=== PATIENT | male | born 1980 | race Caucasian/White ===

== ENCOUNTER 2017-04-25 10:54 | Day surgery (SDC) | payer OTHER ==
[~2017-04-25 10:54] MED LIST: LACTATED RINGERS 1,000 ML IV SCH
[2017-04-25 11:12] VITALS: RESP 16; TEMP 97.4
[2017-04-25] MEDS ORDERED: LIDOCAINE 1% 20 ML VIAL (10MG/ML) FOR IV START INTRADERMA ONE (11:13)
[2017-04-25] MEDS ORDERED: LIDOCAINE 1% INJ 10MG/ML (20 ML MDV) ONE (12:25)
[2017-04-25] MEDS ORDERED: PROPOFOL 10 MG/ML 20 ML VIAL IV ONE (12:25)
[2017-04-25] MEDS ORDERED: GLYCOPYRROLATE 0.2 MG/ML 2 ML VIAL ONE (12:25)
--- NOTE | 2017-04-25 12:48 | P.PCN ---
Date of Procedure: 04/25/17 Procedure(s) Performed: Procedure: Esophagogastroduodenoscopy and biopsy. Preoperative diagnosis: Chronic reflux symptoms requiring therapy. Postoperative diagnosis: 1. Small sliding hiatal hernia with no obvious esophagitis or complicated reflux disease. 2. Mild antral gastritis. 3. Multiple biopsies obtained from the duodenum, antrum and esophagus.. Preparation and sedation: Was provided by anesthesia. Brief clinical history: The patient is a 36-year-old male with history of acid reflux requiring PPI therapy for at least the last couple years with recurrence of his symptoms off medications. This evaluation is to assess for esophagitis or complicated reflux disease and rule out other pathology. Procedure: With the patient on his left lateral decubitus position and after informed consent and adequate sedation, I passed the Olympus-GIF 160 video upper endoscope through the cricopharyngeus down the esophagus. GE junction was around 36 cm from the incisors and there was a small sliding hiatal hernia with no obvious esophagitis or complicated reflux disease. The endoscope was then passed into the stomach which was insufflated with air and inspected in detail including the retroflex view in the cardia. There was some minimal mottling and erythema in the antrum but no ulcers or erosions. Pyloric channel , duodenal bulb, post bulbar area and descending duodenum appeared within normal limits. I obtained biopsies from the duodenum, antrum and esophagus then the endoscope was withdrawn. The patient tolerated the procedure well. Plan: The patient was reassured. Will await biopsy results. He will follow up with you as planned and further plans can be made based on his course and biopsy results.
[2017-04-25 13:01] VITALS: BP 121/83; PULSE 68
== END 2017-04-25 13:35 | disposition home or self-care (01) ==
LOC: ORWHC2ENDO 10:54
DX: K21.9 Gastro-esophageal reflux disease without esophagitis (principal); K29.50 Unspecified chronic gastritis without bleeding; K44.9 Diaphragmatic hernia without obstruction or gangrene; Z79.899 Other long term (current) drug therapy
CPT/HCPCS: 43239; 88305; J2001; J2704

== ENCOUNTER 2018-04-21 01:25 | Emergency (ER) | payer OTHER ==
[2018-04-21 01:36] VITALS: TEMP 98.3
--- NOTE | 2018-04-21 02:07 | ED ---
General Adult HPI - General Chief complaint: Abdominal Pain Stated complaint: abd pain Time Seen by Provider: 04/21/18 01:38 Source: patient Mode of arrival: ambulatory Limitations: no limitations - History of Present Illness Initial comments: Dictation was produced using Stripe dictation software. please excuse any grammatical, word or spelling errors. Chief Complaint: 37-year-old male with past medical history of gastroesophageal reflux disease presents with abdominal pain. History of Present Illness: Patient states his symptoms began at 9 PM yesterday. Patient states he had some potato soup. Shortly after patient began experiencing epigastric abdominal pain. Patient states he has had symptoms like this in the past. He gets these attacks approximately once a year. Patient began experiencing nausea vomiting and diarrhea shortly after. He states his emesis was green in color. He did have some diarrhea with some some small hard stools and then. Patient denies any constitutional symptoms. The ROS documented in this emergency department record has been reviewed and confirmed by me. Those systems with pertinent positive or negative responses have been documented in the HPI. All other systems are other negative and/or noncontributory. PHYSICAL EXAM: General Impression: Alert and oriented x3, not in acute distress HEENT: Normocephalic atraumatic, extra-ocular movements intact, pupils equal and reactive to light bilaterally, mucous membranes moist. Cardiovascular: Heart regular rate and rhythm, S1&S2 audible, no murmurs, rubs or gallops Chest: Lungs clear to auscultation bilaterally, no rhonchi, no wheeze, no rales Abdomen: Nontender tympanic to percussion, diffuse abdominal tenderness worse in the epigastric region Musculoskeletal: Pulses present and equal in all extremities, no peripheral edema Motor: Power 5/5 bilaterally, no focal deficits noted Neurological: CN II-XII grossly intact, no focal motor or sensory deficits noted Skin: Intact with no visualized rashes Psych: Normal affect and mood ED course: 37-year-old male significant past medical history presents with epigastric abdominal pain. As upon arrival are within acceptable limits.Laboratory evaluation obtained. Patient has mild leukocytosis of 15.2. Metabolic panel was obtained. Metabolic panel is unremarkable. Lipase negative. KUB ordered showing nonspecific nonobstructive bowel gas pattern. Abdominal ultrasound was obtained showing no findings of acute cholecystitis. There are several small gallbladder polyps identified. Patient given Toradol. He is reevaluated found to be in stable medical condition. Patient hemodynamically stable. No episodes of nausea vomiting or diarrhea while in the emergency department. Discussed with patient his findings. Patient made aware of his gallbladder polyps. At this point there is no clinical suspicion of surgical abdomen at this time. Discussed with patient that his symptoms may reflect ulcer versus symptomatic gallbladder polyps versus bowel spasms. Patient given prescription for Zofran. He is told to continue taking his proton pump inhibitor medication. Patient given referral to gastroenterology. Patient given strict return precautions that if he should develop any worsening symptoms including fever and worsening abdominal pain to come directly to the emergency department. Patient understandable agreeable to plan. Repeat abdominal examination shows improvement of abdominal symptoms. - Related Data Home Medications Medication Instructions Recorded Confirmed Pantoprazole Sodium [Protonix] 40 mg PO DAILY 04/20/17 04/21/18 Previous Rx's Medication Instructions Recorded Dicyclomine [Bentyl] 10 mg PO QID PRN #12 capsule 04/21/18 Ondansetron Odt [Zofran Odt] 4 mg PO Q8HR PRN #12 tab 04/21/18 Allergies Allergy/AdvReac Type Severity Reaction Status Date / Time No Known Allergies Allergy Verified 04/21/18 01:35 Review of Systems ROS Statement: Those systems with pertinent positive or pertinent negative responses have been documented in the HPI. ROS Other: All systems not noted in ROS Statement are negative. Past Medical History Past Medical History: GERD/Reflux, Skin Disorder Additional Past Medical History / Comment(s): SORENESS, DULL PRESSURE IN CHEST, LIKE "HEARTBURN." ACNE. HX SHINGLES 2016. History of Any Multi-Drug Resistant Organisms: None Reported Additional Past Surgical History / Comment(s): VASECTOMY 04/15/17. MOLAR EXTRACTION. Past Anesthesia/Blood Transfusion Reactions: No Reported Reaction Past Psychological History: No Psychological Hx Reported Smoking Status: Never smoker Past Alcohol Use History: Rare Past Drug Use History: None Reported - Past Family History Mother Family Medical History: No Reported History General Exam Limitations: no limitations Course Vital Signs 04/21/18 04/21/18 01:30 02:37 Temperature 98.3 F Pulse Rate 105 H 92 Respiratory 18 16 Rate Blood Pressure 121/78 120/85 O2 Sat by Pulse 98 100 Oximetry Medical Decision Making - Lab Data Result diagrams: 04/21/18 02:34 04/21/18 02:34 Lab Results 04/21/18 04/21/18 Range/Units 02:34 02:34 WBC 15.2 H (3.8-10.6) k/uL RBC 5.27 (4.30-5.90) m/uL Hgb 16.7 (13.0-17.5) gm/dL Hct 48.4 (39.0-53.0) % MCV 91.7 (80.0-100.0) fL MCH 31.6 (25.0-35.0) pg MCHC 34.5 (31.0-37.0) g/dL RDW 12.3 (11.5-15.5) % Plt Count 206 (150-450) k/uL Neutrophils % 91 % Lymphocytes % 3 % Monocytes % 4 % Eosinophils % 1 % Basophils % 0 % Neutrophils # 13.9 H (1.3-7.7) k/uL Lymphocytes # 0.5 L (1.0-4.8) k/uL Monocytes # 0.6 (0-1.0) k/uL Eosinophils # 0.2 (0-0.7) k/uL Basophils # 0.0 (0-0.2) k/uL Sodium 142 (137-145) mmol/L Potassium 4.4 (3.5-5.1) mmol/L Chloride 104 (98-107) mmol/L Carbon Dioxide 26 (22-30) mmol/L Anion Gap 12 mmol/L BUN 27 H (9-20) mg/dL Creatinine 0.81 (0.66-1.25) mg/dL Est GFR (CKD-EPI)AfAm >90 (>60 ml/min/1.73 sqM) Est GFR (CKD-EPI)NonAf >90 (>60 ml/min/1.73 sqM) Glucose 119 H (74-99) mg/dL Calcium 9.9 (8.4-10.2) mg/dL Total Bilirubin 0.9 (0.2-1.3) mg/dL AST 36 (17-59) U/L ALT 57 (21-72) U/L Alkaline Phosphatase 96 (38-126) U/L Total Protein 8.0 (6.3-8.2) g/dL Albumin 4.8 (3.5-5.0) g/dL Lipase 147 (23-300) U/L Disposition Clinical Impression: Abdominal pain Disposition: HOME SELF-CARE Condition: Fair Instructions (If sedation given, give patient instructions): Abdominal Pain (ED) Prescriptions: Dicyclomine [Bentyl] 10 mg PO QID PRN #12 capsule PRN Reason: abdominal pain Ondansetron Odt [Zofran Odt] 4 mg PO Q8HR PRN #12 tab PRN Reason: Nausea Is patient prescribed a controlled substance at d/c from ED?: No Referrals: Henri Langley MD [Primary Care Provider] - 1-2 days Bertram Tsang MD [STAFF PHYSICIAN] - 1-2 days Time of Disposition: 04:08
[2018-04-21 02:39] VITALS: RESP 16
[2018-04-21 02:47] LABS: Basophils % (A) 0 %; Eosinophils # (A) 0.2 k/uL (0-0.7); Eosinophils % (A) 1 %; HCT 48.4 % (39.0-53.0); HGB 16.7 gm/dL (13.0-17.5); Lymphocytes # (A) 0.5 k/uL (1.0-4.8); Lymphocytes % (A) 3 %; MCH 31.6 pg (25.0-35.0); MCHC 34.5 g/dL (31.0-37.0); MCV 91.7 fL (80.0-100.0); Mean Platelet Volume 7.6; Monocytes # (A) 0.6 k/uL (0-1.0); Monocytes % (A) 4 %; Neutrophils # (A) 13.9 k/uL (1.3-7.7); Neutrophils % (A) 91 %; Platelet Count 206 k/uL (150-450); RBC 5.27 m/uL (4.30-5.90); RDW 12.3 % (11.5-15.5); WBC 15.2 k/uL (3.8-10.6)
[2018-04-21] MEDS ORDERED: KETOROLAC 30 MG/ML 1 ML VIAL IVP STA (02:51)
[2018-04-21 02:56] LABS: ALT 57 U/L (21-72); AST 36 U/L (17-59); Albumin 4.8 g/dL (3.5-5.0); Alkaline Phosphatase 96 U/L (38-126); Anion Gap 12 mmol/L; Blood Urea Nitrogen 27 mg/dL (9-20); Calcium 9.9 mg/dL (8.4-10.2); Carbon Dioxide 26 mmol/L (22-30); Chloride 104 mmol/L (98-107); Glucose 119 mg/dL (74-99); Lipase 147 U/L (23-300); Potassium 4.4 mmol/L (3.5-5.1); Sodium 142 mmol/L (137-145); Total Bilirubin 0.9 mg/dL (0.2-1.3)
--- NOTE | 2018-04-21 02:59 | XR ---
INDICATION: Abdominal pain COMPARISON: None FINDINGS: A total of 2 upright AP views of the abdomen are submitted for interpretation. The bowel gas pattern is nonspecific and nonobstructive. There is no evidence of free air. No abnormal abdominal calcifications are seen. Regional skeleton is intact. IMPRESSION: Nonspecific, nonobstructive bowel gas pattern.
--- NOTE | 2018-04-21 03:48 | US ---
INDICATION: Abdominal pain and vomiting TECHNIQUE: Real-time imaging of the abdomen is performed in transverse and longitudinal projections. COMPARISON: None FINDINGS: The liver is normal in size and echogenicity. No focal lesion is seen. The pancreas is partially obscured by bowel gas. This is portions of aorta and IVC are unremarkable. There is no ascites. The gallbladder wall thickness is borderline measuring 3 mm. Several small gallbladder polyps are identified. There is no evidence of cholelithiasis. There is no pericholecystic fluid. Sonographic Mancuso sign is negative. The common bile duct is normal in caliber. The kidneys appear normal. There is no hydronephrosis. The spleen is unremarkable. EXAM MEASUREMENTS: Liver Length: 16.9 cm Gallbladder Wall: 0.3 cm CBD: 0.4 cm Spleen: 10.3 cm Right Kidney: 9.8 x 4.5 x 3.6 x cm Left Kidney: 9.2 x 5.2 x 4.4 cm IMPRESSION: 1. Several small gallbladder polyps are identified. No sonographic evidence of cholelithiasis, acute cholecystitis, or biliary dilatation.
[2018-04-21] MEDS ORDERED: ONDANSETRON 4 MG/2 ML VIAL IVP STA (04:04)
[2018-04-21 04:19] VITALS: BP 121/83; PULSE 84
== END 2018-04-21 04:14 | disposition home or self-care (01) ==
LOC: EC 01:25
DX: R10.13 Epigastric pain (principal); R11.2 Nausea with vomiting, unspecified; R19.7 Diarrhea, unspecified; K21.9 Gastro-esophageal reflux disease without esophagitis; Z79.899 Other long term (current) drug therapy
CPT/HCPCS: 36415; 74018; 76700; 80053; 83690; 85025; 96374; 96375; 99284

== ENCOUNTER 2020-06-23 12:34 | Emergency (ER) | payer BC, OTHER ==
[2020-06-23 12:46] VITALS: BP 117/85; PULSE 97; TEMP 99
[2020-06-23] MEDS ORDERED: ACETAMINOPHEN TAB 500 MG TAB PO STA (13:03)
--- NOTE | 2020-06-23 13:06 | ED ---
General Adult HPI - General Chief complaint: Upper Respiratory Infection Stated complaint: Covid+, SOB, fever Time Seen by Provider: 06/23/20 12:48 Source: patient, RN notes reviewed Mode of arrival: ambulatory Limitations: no limitations - History of Present Illness Initial comments: Patient is a pleasant 39-year-old male presenting to the emergency Department with complaints of concerns for COVID-19 disease. Onset of symptoms was several days ago. Patient was tested +6 days ago. Patient is having significant fatigue. Patient has fevers at a controlled with Tylenol. Patient does have cough with some shortness of breath. Patient has slightly decreased appetite, loss of smell. Some loose stools. - Related Data Home Medications Medication Instructions Recorded Confirmed Pantoprazole Sodium [Protonix] 40 mg PO DAILY 04/20/17 04/21/18 Previous Rx's Medication Instructions Recorded Dicyclomine [Bentyl] 10 mg PO QID PRN #12 capsule 04/21/18 Ondansetron Odt [Zofran Odt] 4 mg PO Q8HR PRN #12 tab 04/21/18 Allergies Allergy/AdvReac Type Severity Reaction Status Date / Time No Known Allergies Allergy Verified 06/23/20 12:46 Review of Systems ROS Statement: Those systems with pertinent positive or pertinent negative responses have been documented in the HPI. ROS Other: All systems not noted in ROS Statement are negative. Constitutional: Reports: fever, chills Eyes: Denies: eye pain ENT: Denies: ear pain Respiratory: Reports: cough, dyspnea Cardiovascular: Denies: chest pain Endocrine: Reports: fatigue Gastrointestinal: Denies: vomiting Genitourinary: Denies: dysuria Musculoskeletal: Denies: back pain Skin: Denies: rash Neurological: Denies: confusion Past Medical History Past Medical History: GERD/Reflux, Skin Disorder Additional Past Medical History / Comment(s): SORENESS, DULL PRESSURE IN CHEST, LIKE "HEARTBURN." ACNE. HX SHINGLES 2017. History of Any Multi-Drug Resistant Organisms: None Reported Past Surgical History: No Surgical Hx Reported Additional Past Surgical History / Comment(s): VASECTOMY 04/15/17. MOLAR EXTRACTION. Past Anesthesia/Blood Transfusion Reactions: No Reported Reaction Past Psychological History: No Psychological Hx Reported Smoking Status: Never smoker Past Alcohol Use History: Rare Past Drug Use History: None Reported - Past Family History Mother Family Medical History: No Reported History General Exam Limitations: no limitations General appearance: alert, in no apparent distress Head exam: Present: normocephalic Eye exam: Present: normal appearance Neck exam: Present: normal inspection Respiratory exam: Present: normal lung sounds bilaterally. Absent: respiratory distress, wheezes, rhonchi Cardiovascular Exam: Present: regular rate, normal rhythm GI/Abdominal exam: Present: soft. Absent: tenderness Extremities exam: Present: normal inspection. Absent: pedal edema, calf tenderness Neurological exam: Present: alert Psychiatric exam: Present: normal affect, normal mood Skin exam: Present: normal color Course Vital Signs 06/23/20 12:42 Temperature 99.0 F Pulse Rate 97 Respiratory 20 Rate Blood Pressure 117/85 O2 Sat by Pulse 99 Oximetry - Reevaluation(s) Reevaluation #1: 06/23/20 13:04 Patient is not a candidate for monoclonal antibody infusion Medical Decision Making - Medical Decision Making Patient reevaluated and updated. - Radiology Data Radiology results: image reviewed (Chest x-ray shows no acute process) Disposition Clinical Impression: COVID-19 Disposition: HOME SELF-CARE Condition: Stable Instructions (If sedation given, give patient instructions): Upper Respiratory Infection (ED), Fever in Adults (ED) Additional Instructions: Please follow-up with primary care physician in the next day or 2 for recheck. Return for difficulty breathing, not tolerating fluids, uncontrolled fever, worsening symptoms or any other concerns. Continue [id number] vitamin C, vitamin D, zinc. Is patient prescribed a controlled substance at d/c from ED?: No Referrals: Henri Langley MD [Primary Care Provider] - 1-2 days Time of Disposition: 13:48
--- NOTE | 2020-06-23 13:37 | XR ---
EXAMINATION TYPE: XR chest 1V portable DATE OF EXAM: 06/23/2020 COMPARISON: NONE HISTORY: Cough and shortness of breath TECHNIQUE: Single frontal view of the chest is obtained. FINDINGS: There is no focal air space opacity, pleural effusion, or pneumothorax seen. The cardiac silhouette size is within normal limits. The osseous structures are intact. Heart size normal. No o vert failure. IMPRESSION: No acute process.
[2020-06-23 13:46] VITALS: RESP 22
== END 2020-06-23 13:58 | disposition home or self-care (01) ==
LOC: EC 12:34
DX: U07.1 COVID-19 (principal); K21.9 Gastro-esophageal reflux disease without esophagitis
CPT/HCPCS: 71045; 99285

== ENCOUNTER → 2021-03-05 | Outpatient (CLI) | payer BC ==
--- NOTE | 2021-03-05 08:34 | CT ---
EXAMINATION TYPE: CT soft tissue neck w con DATE OF EXAM: 03/05/2021 HISTORY: dysphagia COMPARISON: NONE CT DLP: 381.3 mGycm. Automated Exposure Control for Dose Reduction was Utilized. TECHNIQUE: CT scan of the neck is performed with IV Contrast, patient injected with 100 mL of Isovue 300, axial images are obtained, coronal and sagittal reformatted images are reviewed. FINDINGS: Airway: Slight prominence of the adenoid tonsils and the posterior nasopharynx. Patency of the oral p haryngeal airway extending into the hypopharyngeal airway and proximal trachea. Visualized upper lung s are clear. Thyroid gland appears within normal limits. No obvious enhancing mucosal mass. Parotid/submandibular glands: No gross abnormality seen. Carotid/Vascular Structures: No significant plaque or stenosis. Osseous Structures: No significant abnormality. Other: No definitive abnormal greater than 1 cm neck adenopathy. Few scattered prominent but subcenti meter lymph nodes throughout the neck bilaterally greater on the left side. IMPRESSION: No suspicious mass or adenopathy clearly seen.
== END | disposition home or self-care (01) ==
LOC: RADCTMAIN 07:38
PROVIDERS: ATTEND Otolaryngology
DX: R13.10 Dysphagia, unspecified (principal)
CPT/HCPCS: 70491; Q9967

== ENCOUNTER 2021-04-15 10:42 | Day surgery (SDC) | payer BC ==
[2021-04-13 15:23] VITALS: BMI 27.4
[2021-04-15 11:06] VITALS: TEMP 97.1
[2021-04-15] MEDS: LACTATED RINGERS 1,000 ML IV SCH ×2 (11:07→11:08)
[2021-04-15] MEDS ORDERED: LIDOCAINE 1% (10MG/ML) FOR IV START INTRADERMA ONE (11:07)
[2021-04-15] MEDS ORDERED: LIDOCAINE 1% INJ 10MG/ML (20 ML MDV) ONE (11:59)
[2021-04-15] MEDS ORDERED: PROPOFOL 10 MG/ML 20 ML VIAL IV ONE (11:59)
--- NOTE | 2021-04-15 12:08 | P.PCN ---
Date of Procedure: 04/15/21 Procedure(s) Performed: BRIEF HISTORY: Patient is a 40-year-old, pleasant, male scheduled for an upper endoscopy as a part of evaluation of intermittent dysphagia to solids. He has long-standing history of GERD and has been on Protonix 40 mg daily and denies any heartburn.. PROCEDURE PERFORMED: Esophagogastroduodenoscopy with biopsy. PREOPERATIVE DIAGNOSIS: Intermittent dysphagia to solids and long-standing history of GERD. IV sedation per anesthesia. PROCEDURE: After informed consent was obtained, the patient was brought into the endoscopy unit. IV sedation was administered by Anesthesia under continuous monitoring. Initially the Olympus GIF-140 video endoscope was inserted into the mouth. Esophagus intubated without any difficulty. It was gradually advanced into the stomach and duodenum and carefully examined. The bulb and the second part of the duodenum appeared normal. The scope at this time was withdrawn to the stomach, adequately insufflated with air, and upon careful examination, mucosa of the antrum, body, cardia and the fundus appeared normal. The scope was then withdrawn into the esophagus. The GE junction was located at 39 cm from the incisors. Small sliding type I'll hernia noted. There was a 2 mm polyp noted just proximal to the GE junction which was biopsied. The esophagus appeared normal. There were no erosions or ulcerations seen and the patient tolerated the procedure well. IMPRESSION: 1. Normal-appearing esophagus with no evidence of esophagitis or esophageal stricture. 2. Small sliding type hiatal hernia. RECOMMENDATIONS: The findings of this examination were discussed with the patient as well as his family. Was advised to follow with the biopsy results. He'll continue with Protonix 40 mg daily and follow antireflux measures..
[2021-04-15 12:46] VITALS: BP 119/88; PULSE 68; RESP 16
== END 2021-04-15 13:17 | disposition home or self-care (01) ==
LOC: ORWHC2ENDO 10:42
PROVIDERS: ATTEND Internal Medicine Gastroenterology
DX: K44.9 Diaphragmatic hernia without obstruction or gangrene (principal); K22.82 Esophagogastric junction polyp; K21.9 Gastro-esophageal reflux disease without esophagitis; Z79.899 Other long term (current) drug therapy
CPT/HCPCS: 88305; 43239; J2001; J2704